=== PATIENT | female | born 1965 | race Caucasian/White ===

== ENCOUNTER → 2019-05-04 | Outpatient (CLI) | payer BC | LOC: MC.RAD 06:58 | DX: Z12.31 Encounter for screening mammogram for malignant neoplasm of breast (principal); N64.89 Other specified disorders of breast ==

== ENCOUNTER → 2019-05-14 | Outpatient (CLI) | payer BC | LOC: MC.RAD 10:21 | DX: R92.2 Inconclusive mammogram (principal) ==

== ENCOUNTER 2022-01-17 07:04 | Day surgery (SDC) | payer BC ==
[~2022-01-17] VITALS: Ht 162.6 cm; Wt 75.2 kg
[2022-01-17 07:13] VITALS: BP 130/77; PULSE 72; TEMP 97
[2022-01-17] MEDS ORDERED: SYNTHROID0.05 MG/TA PO (07:13)
[2022-01-17 08:25] VITALS: BP 126/65; PULSE 68; TEMP 98.1
--- NOTE | 2022-01-17 08:25 | NUR ---
PT arrived from procedure drowsy but oriented. PT ambulated to chair from cart with Huong FRANCIS. Monitors applied and VSS. PT denies nausea. NO vomiting. Warm muffin and hot coffee served with requested condiments. PT oriented to room and call [facility], within reach. Will monitor per intervals.
[2022-01-17 08:40] VITALS: BP 136/70; PULSE 70
--- NOTE | 2022-01-17 08:40 | NUR ---
VSS. PT continues to deny nausea and expressed desire to be discharged. Call [facility] remains within reach. PT states she has contacted her ride.
[2022-01-17 08:55] VITALS: BP 120/75; PULSE 70
--- NOTE | 2022-01-17 08:55 | NUR ---
VSS. IV discontinued. Catheter tip intact. Pressure bandage applied. NO redness or swelling. PT denies nausea. DC instructions and educational material reviewed with the PT who verbalized understanding and signed the related paperwork. PT denied needing assistance changing into personal clothes. Call [facility] within reach if needed. Awaiting PT ride home. Questions answered.
--- NOTE | 2022-01-17 09:06 | NUR ---
PT dismissed from endo via wheelchair by Margareth FRANCIS to PT entrence. PT had DC packet in hand and personal belongings and was tranferred into the care of Haim, who is driving a private car.
== END 2022-01-17 09:05 | disposition home or self-care (01) ==
LOC: SDCO 07:04
DX: Z12.11 Encounter for screening for malignant neoplasm of colon (principal)
CPT/HCPCS: J2704; J7120